=== PATIENT | female | born 1950 | race Caucasian/White ===

== ENCOUNTER 2020-07-22 09:47 | Outpatient (CLI) | payer MEDICARE, OTHER | END 2020-07-22 09:48 | disposition home or self-care (01) | LOC: CSHULT 09:47 | PROVIDERS: ATTEND Internal Medicine | DX: K74.60 Unspecified cirrhosis of liver (principal); B19.10 Unspecified viral hepatitis B without hepatic coma; Z12.11 Encounter for screening for malignant neoplasm of colon; R16.1 Splenomegaly, not elsewhere classified | CPT/HCPCS: 76705 ==

== ENCOUNTER 2021-02-18 08:43 | Outpatient (CLI) | payer MEDICARE, OTHER | END 2021-02-18 08:44 | disposition home or self-care (01) | LOC: CSHULT 08:43 | PROVIDERS: ATTEND Internal Medicine | DX: B19.10 Unspecified viral hepatitis B without hepatic coma (principal); K74.60 Unspecified cirrhosis of liver | CPT/HCPCS: 76705 ==

== ENCOUNTER 2021-08-19 08:05 | Outpatient (CLI) | payer MEDICARE, OTHER | END 2021-08-19 08:06 | disposition home or self-care (01) | LOC: CSHULT 08:05 | PROVIDERS: ATTEND Internal Medicine | DX: K74.60 Unspecified cirrhosis of liver (principal); I85.10 Secondary esophageal varices without bleeding; B19.10 Unspecified viral hepatitis B without hepatic coma; K76.89 Other specified diseases of liver; R16.1 Splenomegaly, not elsewhere classified | CPT/HCPCS: 76705 ==

== ENCOUNTER 2021-11-26 10:41 | Outpatient (CLI) | payer OTHER | END 2021-11-26 10:42 | disposition home or self-care (01) | LOC: CSHMAMMO 10:41 | PROVIDERS: ATTEND Family Medicine | DX: Z12.31 Encounter for screening mammogram for malignant neoplasm of breast (principal); Z91.89 Other specified personal risk factors, not elsewhere classified | CPT/HCPCS: 77063; 77067 ==

== ENCOUNTER 2022-03-25 09:10 | Outpatient (CLI) | payer OTHER ==
[2022-03-25] MEDS ORDERED: Iopamidol 300 61% 100 ML VIAL FS ONE (13:20)
== END 2022-03-25 09:11 | disposition home or self-care (01) ==
LOC: CSHCT 09:10
PROVIDERS: ATTEND Internal Medicine
DX: K74.60 Unspecified cirrhosis of liver (principal); I85.00 Esophageal varices without bleeding; B19.10 Unspecified viral hepatitis B without hepatic coma; D12.6 Benign neoplasm of colon, unspecified; K76.89 Other specified diseases of liver; E27.8 Other specified disorders of adrenal gland; I72.8 Aneurysm of other specified arteries
CPT/HCPCS: 74170; 82565; Q9967